=== PATIENT | female | born 1975 | race African-American/Black ===

== ENCOUNTER 2021-03-21 16:59 | Emergency (ER) | payer OTHER ==
[~2021-03-21] VITALS: Ht 172.7 cm; Wt 85.0 kg
[2021-03-21 17:03] VITALS: BP 186/119
[2021-03-21] MEDS ORDERED: PENICILLIN V POTASSIUM 500 MG TABLET PO ONE (17:30)
[2021-03-21] MEDS ORDERED: IBUPROFEN 600 MG TABLET PO ONE (17:30)
[2021-03-21] MEDS ORDERED: HYDROCODONE/ACETAMINOPHEN 5-325 MG TABLET PO ONE (17:30)
== END 2021-03-21 17:47 | disposition home or self-care (01) ==
LOC: EMS 17:01
DX: K04.7 Periapical abscess without sinus (principal); F17.210 Nicotine dependence, cigarettes, uncomplicated
CPT/HCPCS: 99284; Z7502; Z7610

== ENCOUNTER 2021-07-17 11:27 | Emergency (ER) | payer OTHER ==
[~2021-07-17] VITALS: Ht 172.7 cm; Wt 80.5 kg
[2021-07-17] MEDS ORDERED: HYDROCODONE/ACETAMINOPHEN 5-325 MG TABLET PO ONE (12:15)
[2021-07-17 12:39] VITALS: BP 171/85
== END 2021-07-17 12:43 | disposition home or self-care (01) ==
LOC: EMS 11:42
DX: K02.9 Dental caries, unspecified (principal); R03.0 Elevated blood-pressure reading, without diagnosis of hypertension; F12.90 Cannabis use, unspecified, uncomplicated; F17.210 Nicotine dependence, cigarettes, uncomplicated
CPT/HCPCS: 99283

== ENCOUNTER 2022-02-11 05:21 | Emergency (ER) | payer OTHER ==
[~2022-02-11] VITALS: Ht 172.7 cm; Wt 80.5 kg
[2022-02-11] MEDS ORDERED: ACET-2080 PO (05:36)
[2022-02-11] MEDS ORDERED: IBUP-2070 PO ×2 (05:36→07:06)
[2022-02-11] MEDS ORDERED: KETOROLAC TROMETHAMINE 30 MG/ML VIAL IM ONE (06:15)
[2022-02-11] MEDS ORDERED: LIDOCAINE 1% 10 ML VIAL ONE (06:16)
[2022-02-11 07:34] VITALS: BP 145/97
== END 2022-02-11 08:03 | disposition home or self-care (01) ==
LOC: EMS 05:22
DX: K08.89 Other specified disorders of teeth and supporting structures (principal); F17.210 Nicotine dependence, cigarettes, uncomplicated; F12.90 Cannabis use, unspecified, uncomplicated; F15.90 Other stimulant use, unspecified, uncomplicated; Z98.890 Other specified postprocedural states
CPT/HCPCS: 99283; 96372; J1885; J3490